=== PATIENT | male | born 1970 | race Two or more races ===

== ENCOUNTER 2020-05-03 07:21 | Day surgery (SDC) | payer OTHER, SELFPAY ==
[2020-04-27 12:16] VITALS: BMI 34.7
--- NOTE | 2020-05-02 08:33 | HO.ANESPROP2 ---
Documented by User: Naty Schroeder 05/02/20 08:34 HPI - Anesthesia Eval Consult details Narrative: 49yo M for Colonoscopy [facility] Past Medical History Medical History (Updated 05/03/20 @ 08:29 by Alissa Mandujano) Gout Snoring Surgical History Surgical History Hx of cholecystectomy Hx of colonoscopy Hx of umbilical hernia repair Social History Social History Are you a primary critical care transport nurse to a significant other at home: No Do you presently have visiting nurse or other home services: No Smoking Status: Never smoker Use of substances other than those prescribed or required for medical reasons: No Advance Directives: No Advance Directives Information Provided: No Advance Directives on File: No Recently lost weight without trying: No Meds Allergies Allergy/AdvReac Type Severity Reaction Status Date / Time No Known Allergies Allergy Unverified 04/27/20 12:15 Home Medications Medication Instructions Recorded Confirmed Type No Known Home Meds 04/27/20 04/27/20 History Exam Exam Date and Time: May 02, 2020 0833 Height,Weight and Vital Signs: Height 5 ft 6 in Weight 97.522 kg Assessment and Plan Assessment Anesthesia Assessment: Chart Reviewed Documented by User: Alissa Mandujano 05/03/20 08:31 [facility] Past Medical History Medical History (Updated 05/03/20 @ 08:29 by Alissa Mandujano) Gout Snoring Surgical History Surgical History Hx of cholecystectomy Hx of colonoscopy Hx of umbilical hernia repair History of Problems with Anesthesia: No Social History Social History Are you a primary critical care transport nurse to a significant other at home: No Do you presently have visiting nurse or other home services: No Smoking Status: Never smoker Use of substances other than those prescribed or required for medical reasons: No Advance Directives: No Advance Directives Information Provided: No Advance Directives on File: No Recently lost weight without trying: No Meds Allergies Allergy/AdvReac Type Severity Reaction Status Date / Time No Known Allergies Allergy Unverified 04/27/20 12:15 Home Medications Medication Instructions Recorded Confirmed Type No Known Home Meds 04/27/20 04/27/20 History Exam Height,Weight and Vital Signs: Vital Signs Temp Pulse Resp BP Pulse Ox 05/03/20 07:48 97.7 F 74 16 150/86 H 95 Airway Mallampati Class: III TM Dist: >3cm Neck ROM: Full Loose/Missing/Broken Teeth: Yes (Chipped 2 front, side) Heart: RRR Lungs: CTAB Assessment and Plan Assessment Anesthesia Assessment: Anesthesia Plan Discussed and Chart Reviewed Final Anesthetic Review NPO: Yes ASA Class: II Final Preanesthetic Review: No Changes in Pt Med Stat, Meds/Allgs Chart Reviewed, Consent Obtained/Reviewed and Anes Risks/Benef Reviewed Patient Risk: Low Procedure Risk: Low Assessment/Block/Sedation in SS: Assess/Block/Sedation-SS Anesthetic Plan Anesthetic Plan: MAC: Disposition: Standard PACU
[2020-05-03 07:48] VITALS: BP 150/86; PULSE 74; RESP 16; TEMP 36.5; O2SAT 95
[2020-05-03] MEDS: Lactated Ringers 1,000 ML 100 ML IVCONT (08:04)
--- NOTE | 2020-05-03 08:09 | MHC.SHP ---
Pre-Procedural Eval Section A The patient is an INPATIENT: No Changes since office visit: No Cold of Flu in the past 2 weeks, No New Medical Problems, No Changes in Medication and No Patient answered all questions The History & Physical has been completed within 30 days and I have reviewed it.: Yes Section B Chief Complaint: screening Allergies: Allergies Allergy/AdvReac Type Severity Reaction Status Date / Time No Known Allergies Allergy Unverified 04/27/20 12:15 Plan Patient has been examined and remains a candidate for the planned procedure
[2020-05-03 09:19] VITALS: BP 118/67; PULSE 93; RESP 18; TEMP 36.4; O2SAT 96
--- NOTE | 2020-05-03 09:27 | PM.OP ---
Brief Operative Note Date of Service: 05/03/20 Pre-op diagnosis: screening Post-op diagnosis: same (colon polyps) Procedure: colonoscopy Surgeon: Delgado Rojas Estimated blood loss (mL): 0 Pathology: other (polyps icv,45, 30, rectum x2) Condition: stable Disposition: other
[2020-05-03 09:35] VITALS: BP 135/91; PULSE 76; RESP 18; TEMP 36.4; O2SAT 96
--- NOTE | 2020-05-03 09:56 | HO.POSTANES ---
Post Anesthesia Evaluation Post Anesthesia Evaluation Vital Signs: Vital Signs Temp Pulse Resp BP Pulse Ox 05/03/20 09:35 97.6 F 76 18 135/91 H 96 05/03/20 09:19 97.6 F 93 18 118/67 96 05/03/20 07:48 97.7 F 74 16 150/86 H 95 Anesthesia: Monitored Mental Status: Awake Pain Control: Satisfactory Nausea/Vomiting: None Hydration: Adequate Anesthesia-Related Issues: No Anes. Related Issues
--- NOTE | 2020-05-04 15:47 | OP_ITS ---
SURGEON: Delgado Rojas MD INDICATIONS: Colon cancer screening. PREOPERATIVE DIAGNOSIS: POSTOPERATIVE DIAGNOSIS: PROCEDURE PERFORMED: ESTIMATED BLOOD LOSS: COMPLICATIONS: ANESTHESIA: ASSISTANTS: SPECIMENS: PROCEDURE: Colonoscopy to the terminal ileum with snare polypectomy. MEDICATIONS: Monitored anesthesia care. DESCRIPTION OF PROCEDURE: History and physical performed. The risks and benefits of the procedure were explained to the patient. Informed consent was obtained. The patient was placed in the left lateral decubitus position. A digital rectal exam was performed and was found to be normal. The Olympus pediatric video colonoscope was introduced into the rectum and advanced to the cecum without difficulty. The cecum was identified by transillumination, palpation, and identification of ileocecal valve. Examination was performed and the scope was removed. He tolerated the procedure well and was taken to recovery room in stable condition. FINDINGS: The terminal ileum was normal. The visualized colonic mucosa was normal. Multiple colonic polyps were identified and removed with a snare. At 45 cm was a pedunculated 10 mm polyp, which was suctioned and removed from the patient. Other polyps measured less than 10 mm and were located on the ileocecal valve at 30 cm and in the rectum x2. No other polyps were identified. The quality of prep was good. Retroflexed examination was normal. IMPRESSION: Colon polyps. RECOMMENDATIONS: Follow up the biopsy results. MD CRISTINA Muñoz/KRISTIAN / [id number]
== END 2020-05-03 10:10 | disposition home or self-care (01) ==
PROVIDERS: PCP Family Medicine; Visit Provider Internal Medicine Gastroenterology
PROC: 0DJD8ZZ Inspection of Lower Intestinal Tract, Via Natural or Artificial Opening Endoscopic (ICD-10-PCS; CPT 45378; principal; 2020-05-03 08:50)
DX: Z12.11 Encounter for screening for malignant neoplasm of colon (principal); D12.0 Benign neoplasm of cecum; D12.6 Benign neoplasm of colon, unspecified; D12.8 Benign neoplasm of rectum
CPT/HCPCS: 45385; 45380; 88305

== ENCOUNTER 2020-12-02 15:49 | Outpatient (REF) | payer OTHER, SELFPAY ==
--- NOTE | ~2020-12-02 | US_ITS ---
EXAMINATION: US VENOUS ULTRASOUND WITH DOPPLER LOWER EXTREMITY, LEFT CLINICAL INFORMATION: Pain COMPARISON: None TECHNIQUE: Ultrasound of the deep veins is performed from the hip to the calf with compression sonography and color and pulse Doppler assessment. Spectral analysis with color-flow imaging is performed. FINDINGS: There is normal venous compression and respiratory variation and augmented flow. The visualized common femoral vein, superficial femoral vein, profunda femoral vein, popliteal vein, and the trifurcation region shows no evidence of deep venous thrombosis. There is no significant popliteal fossa cyst. US/US venous duplex LE LT IMPRESSION: No DVT demonstrated in the left lower extremity.
== END 2020-12-02 15:50 | disposition home or self-care (01) ==
LOC: HO.HMGCX 15:49
PROVIDERS: PCP Internal Medicine Medical Oncology; Visit Provider Internal Medicine Medical Oncology
DX: I82.402 Acute embolism and thrombosis of unspecified deep veins of left lower extremity (principal)
CPT/HCPCS: 93971

== ENCOUNTER 2022-01-10 15:07 | Outpatient (REF) | payer OTHER, SELFPAY ==
[2022-01-10 18:34] LABS: CT PCR NOT DETECTED (Not Detect.); NG PCR NOT DETECTED (Not Detect.)
== END 2022-01-10 15:08 | disposition home or self-care (01) ==
LOC: HO.LNP 15:07
PROVIDERS: Visit Provider Internal Medicine Medical Oncology
DX: A54.9 Gonococcal infection, unspecified (principal); A74.9 Chlamydial infection, unspecified
CPT/HCPCS: 87491; 87591

== ENCOUNTER 2022-01-10 15:27 | Outpatient (REF) | payer OTHER, SELFPAY ==
[2022-01-10 15:44] LABS: MANUAL DIFF FLAG NO
[2022-01-10 16:46] LABS: Basophils Absolute Auto 0.1 X10*3/uL (0.0-0.2); Basophils Percent Auto 0.7 % (0-2); Eosinophils Absolute Auto 0.1 X10*3/uL (0.0-0.4); Eosinophils Percent Auto 0.7 % (0-4); Hemoglobin 16.4 g/dl (14.0-18.0); Imm Gran Abs Auto 0.02 X10*3/uL (0.00-0.03); Imm Gran Pct Auto 0.2 % (0.0-0.4); Lymphocytes Absolute Auto 3.3 X10*3/uL (1.2-4.9); Lymphocytes Percent Auto 37.9 % (20-40); Mean Corpuscular HGB Conc 34.9 g/dl (31.0-36.0); Mean Corpuscular Hemoglobin 31.2 pg (27.0-33.0); Mean Corpuscular Volume 89.5 fL (80.0-98.0); Mean Platelet Volume 11.6 fL (9.4-12.4); Monocytes Absolute Auto 0.8 X10*3/uL (0.1-1.2); Monocytes Percent Auto 9.2 % (2-11); Neutrophils Absolute Auto 4.5 x10*3/uL (2.0-8.3); Neutrophils Percent Auto 51.3 % (45-73); Platelet Count 227 X10*3/uL (160-400); Red Blood Count 5.25 X10*6/uL (4.60-5.80); Red Cell Distribution Width 12.3 % (11.0-16.0); White Blood Count 8.8 X10*3/uL (4.8-10.8)
[2022-01-10 17:12] LABS: Alanine Aminotransferase 93 U/L (0-40); Albumin Level 4.6 g/dL (3.5-5.0); Alkaline Phosphatase 80 U/L (39-117); Anion Gap 17 (12-20); Aspartate Amino Transferase 97 U/L (5-37); Bilirubin Total 0.9 mg/dL (0.0-1.0); Blood Urea Nitrogen 10 mg/dL (9-16); Calcium 9.8 mg/dL (8.4-10.2); Carbon Dioxide 27 mmol/L (22-29); Chloride 101 mmol/L (96-108); Cholesterol 229 mg/dL; Estimated Glomerular Filt Rate > 60; Glucose Random 80 mg/dL (60-115); HDL Cholesterol 47 mg/dL; LDL Cholesterol Calculated 148 mg/dl; Potassium 4.3 mmol/L (3.3-5.1); Sodium 141 mmol/L (135-145); Total Protein 8.1 g/dL (6.5-8.0); Triglycerides 172 mg/dL
[2022-01-11 08:32] LABS: HIV AB/AG Nonreactive (Nonreactive); HIV Num 1 0.05 S/CO (0.00-0.99)
[2022-01-12 06:29] LABS: Syphilis Screen Nonreactive (Nonreactive)
== END 2022-01-10 15:28 | disposition home or self-care (01) ==
LOC: HO.LAB 15:27
PROVIDERS: PCP Internal Medicine Medical Oncology; Visit Provider Internal Medicine Medical Oncology
DX: Z11.4 Encounter for screening for human immunodeficiency virus [HIV] (principal); Z12.5 Encounter for screening for malignant neoplasm of prostate; A54.9 Gonococcal infection, unspecified; A74.9 Chlamydial infection, unspecified; K75.9 Inflammatory liver disease, unspecified; N52.9 Male erectile dysfunction, unspecified
CPT/HCPCS: 36415; 80053; 80061; 84153; 85025; 86780; 87389

== ENCOUNTER 2022-05-03 09:36 | Outpatient (REF) | payer OTHER, SELFPAY ==
--- NOTE | ~2022-05-03 | XR_ITS ---
EXAMINATION: XR ANKLE, LEFT CLINICAL INFORMATION: Left ankle pain. COMPARISON: None TECHNIQUE: AP, lateral, and mortise views of the left ankle. FINDINGS: There is no evidence of acute fracture or dislocation of the left ankle. Left ankle mortise intact. There is mild spurring at the tibial talar joint. No destructive bony lesions. Joint spaces maintained. XR/XR ankle LT min 3V IMPRESSION: No acute bony abnormality of the left ankle identified.
== END 2022-05-03 09:37 | disposition home or self-care (01) ==
LOC: HO.XRAY 09:36
PROVIDERS: PCP Internal Medicine Medical Oncology; Visit Provider Internal Medicine Medical Oncology
DX: M25.572 Pain in left ankle and joints of left foot (principal)
CPT/HCPCS: 73610

== ENCOUNTER 2022-07-02 16:58 | Outpatient (REF) | payer OTHER, SELFPAY | END 2022-07-02 16:59 | disposition home or self-care (01) | LOC: HO.LNP 16:58 | PROVIDERS: PCP Internal Medicine Medical Oncology; Visit Provider Internal Medicine Medical Oncology | DX: J02.9 Acute pharyngitis, unspecified (principal) | CPT/HCPCS: 87070 ==

== ENCOUNTER → 2022-08-16 13:10 | Outpatient (BNVA) | payer OTHER, SELFPAY | PROVIDERS: PCP Internal Medicine Medical Oncology; Visit Provider Physician Assistant | DX: M76.72 Peroneal tendinitis, left leg (principal); M19.072 Primary osteoarthritis, left ankle and foot | CPT/HCPCS: 99202 ==

== ENCOUNTER 2022-10-02 13:42 | Outpatient (RCR) | payer OTHER, SELFPAY ==
--- NOTE | 2022-10-02 15:29 | MHC.PT.EP ---
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 PRESENTS WITH GOOD OVERALL ROM (EXCEPT EVERSION) AND STRENGTH WITHOUT SIGNIF PAIN/SWELLING AT TIME OF EVAL. Pt REPORTS MOST DISCOMFORT WHEN STANDS AFTER PROLONGED SIT OR AFTER SLEEP. SHOULD BENEFIT FROM SHORT BOUT OF PT TO ADDRESS THESE ISSUES ALONG WITH PROPRIOCEPTION WORK Frequency and Duration: The patient will be seen 1X/WK X 3 WKS Short Term Goals: 1. INCREASED AWARENESS ANKLE CARE 2. CONTINUED LIMITED SWELLING Halfway Goals: 1. INCREASED EVERSION ROM 5 DEGREES 2. IMPROVED LEFI (58/80 SOC) 3. I HEP WITH DC EX PLAN 4. DECREASED L ANKLE PAIN AT LEAST 50% WITH ADLS Treatment Plan: Modalities to reduce pain, spasms and effusion. Manual therapy to restore motion and function. Therapeutic exercise to improve strength and flexibility. Neuromuscular re-education for posture and balance. Therapeutic activities to return to functional activities of daily living. Electronically signed by: ALAYNA JANSEN PT Please sign and return to therapist. Thank you for your referral.
--- NOTE | 2022-10-23 15:41 | MHC.PT.DC ---
[facility] [place] Office [place] Office [place] Office [address] Xavier Cope [address] [phone] F: [phone] F: [phone] F: [phone] F: [phone] Physical Therapy Discharge Report Diagnosis: OA L ANKLE Date of Surgery: NA Date of Evaluation: 10/02/22 Date of Discharge: 10/23/22 Treatments to Date: 1 Cancellations to Date: No Shows to Date: 3 Discharge Status: Visit Non-compliance Discharge Summary: Pt SEEN FOR INIT EVAL ONLY. Pt NO SHOWED FOR 3 APPTS. 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 PRESENTS WITH GOOD OVERALL ROM (EXCEPT EVERSION) AND STRENGTH WITHOUT SIGNIF PAIN/SWELLING AT TIME OF EVAL. Pt REPORTS MOST DISCOMFORT WHEN STANDS AFTER PROLONGED SIT OR AFTER SLEEP. SHOULD BENEFIT FROM SHORT BOUT OF PT TO ADDRESS THESE ISSUES ALONG WITH PROPRIOCEPTION WORK Electronically signed by: ALAYNA JANSEN PT Please sign and return to therapist. Thank you for your referral.
== END 2022-10-23 15:41 | disposition home or self-care (01) ==
LOC: HO.PT 13:42
PROVIDERS: PCP Physician Assistant Medical; Visit Provider Physician Assistant
DX: M76.72 Peroneal tendinitis, left leg (principal); M19.072 Primary osteoarthritis, left ankle and foot
CPT/HCPCS: 97110; 97161

== ENCOUNTER 2023-07-23 07:36 | Day surgery (SDC) | payer OTHER, SELFPAY ==
[2023-07-19 13:27] VITALS: BMI 34.4
--- NOTE | 2023-07-19 15:46 | P.CONAN_ITS ---
Documented by User: Naty Schroeder NP 07/19/23 15:46 HPI - Anesthesia Eval Consult details Narrative: 52yo M for Colonoscopy PMFSH Active Problems Active Problems: All Active Problems (Updated 07/19/23 @ 13:35 by Marleny Garcia, SREEDHAR) Osteoarthritis of left ankle (Acute) Peroneal tendonitis of left lower extremity (Acute) Snoring (Acute) Past Medical History Medical History GABRIEL (obstructive sleep apnea) Multiple adenomatous polyps History of colon polyps Rosacea Hyperlipidemia Gout Surgical History Surgical History Hx of umbilical hernia repair (~2019) Hx of colonoscopy Hx of cholecystectomy History of Problems with Anesthesia: No Social History Social History Are you a primary intensive care nurse to a significant other at home: No Do you presently have visiting nurse or other home services: No Patient Tobacco Use Status: Never used Tobacco Current occupational status: unemployed Meds Allergies Allergy/AdvReac Type Severity Reaction Status Date / Time No Known Allergies Allergy Verified 07/19/23 13:37 Home Medications Medication Instructions Recorded Confirmed Last Taken Type allopurinol 100 mg tablet 100 mg PO DAILY PRN gout 07/22/23 07/23/23 05/25/22 History Exam Height,Weight and Vital Signs: Height 5 ft 6 in Weight 96.615 kg Assessment and Plan Assessment Anesthesia Assessment: Chart Reviewed Final Anesthetic Review History of Problems with Anesthesia: No Documented by User: Alissa Mandujano MD 07/23/23 08:52 PMFSH Active Problems Active Problems: All Active Problems (Updated 07/23/23 @ 08:35 by René Mandujano MD) Osteoarthritis of left ankle (Acute) Peroneal tendonitis of left lower extremity (Acute) Snoring (Acute) GABRIEL. Not using CPAP Past Medical History Medical History GABRIEL (obstructive sleep apnea) Multiple adenomatous polyps History of colon polyps Rosacea Hyperlipidemia Gout Family History Family history of problems with anesthesia: No Surgical History Surgical History Hx of umbilical hernia repair (~2019) Hx of colonoscopy Hx of cholecystectomy History of Problems with Anesthesia: No Social History Social History Are you a primary intensive care nurse to a significant other at home: No Do you presently have visiting nurse or other home services: No Patient Tobacco Use Status: Never used Tobacco Current occupational status: unemployed Meds Allergies Allergy/AdvReac Type Severity Reaction Status Date / Time No Known Allergies Allergy Verified 07/19/23 13:37 Home Medications Medication Instructions Recorded Confirmed Last Taken Type allopurinol 100 mg tablet 100 mg PO DAILY PRN gout 07/22/23 07/23/23 05/25/22 History Exam Height,Weight and Vital Signs: Height 5 ft 6 in Weight 96.615 kg Vital Signs Temp Pulse Resp BP Pulse Ox O2 Del Method 07/23/23 07:58 98.3 F 96 19 162/90 H 97 Room Air Airway Mallampati Class: II TM Dist: >3cm Neck ROM: Full Loose/Missing/Broken Teeth: Yes (Missing teeth back) Heart: RRR Lungs: CTAB Assessment and Plan Assessment Anesthesia Assessment: Anesthesia Plan Discussed and Chart Reviewed Final Anesthetic Review Family History of Problems with Anesthesia: No History of Problems with Anesthesia: No NPO: Yes ASA Class: III Final Preanesthetic Review: No Changes in Pt Med Stat, Meds/Allgs Chart Reviewed, Consent Obtained/Reviewed and Anes Risks/Benef Reviewed Patient Risk: Intermediate Procedure Risk: Low Assessment/Block/Sedation in SS: Assess/Block/Sedation-SS Anesthetic Plan Anesthetic Plan: MAC: and TIVA Disposition: Standard PACU
[2023-07-23 07:58] VITALS: BP 162/90; PULSE 96; RESP 19; TEMP 36.8; O2SAT 97; BMI 34.3
[2023-07-23] MEDS: Lactated Ringers 1,000 ML 100 ML IVCONT (08:35)
--- NOTE | 2023-07-23 08:50 | P.HPSUR_ITS ---
Pre-Procedural Eval Section A - 24 Hr Update-Section A only Date of Service: 07/23/23 Section B - Complete if H&P > 30 days Chief Complaint: Encounter for screening for malignant neoplasm of Details of Present Illness: see H&P no changes Relevant Family History (Specify if Yes): No Relevant Social History: None Present Medications: see Short Stay Collaborative assessment Medical History: No relevant PMH History of Previous Operations: No relevant previous surgery Allergies: Allergies Allergy/AdvReac Type Severity Reaction Status Date / Time No Known Allergies Allergy Verified 07/19/23 13:37 Review of Systems Sugical H&P ROS: Negative: Constitution, Cardiovascular, Respiratory, Neurological, Psychiatric, Hem-Onc, Allergic/Immunologic, Gastrointestinal, Genitourinary, Musculoskeletal, Integumentary, Endocrine and Eyes/Ears/No se/Throat Exam Surgical H&P Exam: Normal: HEENT, Normal: Heart, Normal: Lungs, Normal: Extremities, Normal: Abdomen, Normal: Skin and Normal: Neurological Plan Diagnosis/Plan: Unchanged I have reviewed the history and physical and performed a pertinent physical examination on my patient. No changes have occurred unless specified. Time Spent With Patient Time: Total time managing care of this patient today ____ minutes.
[2023-07-23 09:34] VITALS: BP 99/60; PULSE 76; RESP 15; TEMP 36.6; O2SAT 96
[2023-07-23 09:48] VITALS: BP 114/80; PULSE 55; RESP 18; TEMP 36.3; O2SAT 96
--- NOTE | 2023-07-23 09:48 | OP_ITS ---
DATE OF SERVICE: 07/23/2023 SURGEON: Delgado Rojas MD INDICATIONS: Colon cancer screening and prior history of adenomatous colon polyps. PREOPERATIVE DIAGNOSIS: POSTOPERATIVE DIAGNOSIS: PROCEDURE PERFORMED: Colonoscopy to the terminal ileum with snare polypectomy. ESTIMATED BLOOD LOSS: COMPLICATIONS: ANESTHESIA: Monitored anesthesia care. ASSISTANTS: SPECIMENS: DESCRIPTION OF PROCEDURE: A history and physical were performed. The risks and benefits of the procedure were explained to the patient, and informed consent was obtained. The patient was placed in the left lateral decubitus position. A digital rectal exam was performed and was found to be normal. The Olympus pediatric video colonoscope was introduced into the rectum and advanced to the cecum. The cecum was identified by transillumination, palpation, and identification of the ileocecal valve. Examination was performed and the scope was removed. He tolerated the procedure well. He was returned to the recovery area in stable condition. FINDINGS: The terminal ileum was examined and appeared normal. The visualized colonic mucosa was normal. At 70 cm were 3 polyps measuring less than 10 mm, which were removed with a snare and recovered via suction. At 55 cm was a 10 mm polyp that was pedunculated; this was removed with a snare and removed from the patient. The scope was reinserted. No other polyps were identified. Retroflexed examination showed some small internal hemorrhoids. The quality of prep was good. IMPRESSION: Colon polyps. RECOMMENDATION: Follow up biopsy results. MD CRISTINA Muñoz/KRISTIAN / [id number]
== END 2023-07-23 11:20 | disposition home or self-care (01) ==
PROVIDERS: PCP Internal Medicine Medical Oncology; Visit Provider Internal Medicine Gastroenterology
PROC: 0DJD8ZZ Inspection of Lower Intestinal Tract, Via Natural or Artificial Opening Endoscopic (ICD-10-PCS; CPT 45378; principal; 2023-07-23 09:10)
DX: Z12.11 Encounter for screening for malignant neoplasm of colon (principal); D12.4 Benign neoplasm of descending colon; D12.5 Benign neoplasm of sigmoid colon; Z86.010 Personal history of colon polyps; E78.5 Hyperlipidemia, unspecified; G47.33 Obstructive sleep apnea (adult) (pediatric)
CPT/HCPCS: 45385; 88305; J2704

== ENCOUNTER 2023-07-25 17:42 | Emergency (ER) | payer OTHER, SELFPAY ==
[2023-07-25 17:46] VITALS: BP 145/88; PULSE 70; RESP 18; TEMP 37.2; O2SAT 99; BMI 32.8
--- NOTE | 2023-07-25 17:46 | ED.GENADULT ---
HPI - General Adult General Chief complaint: GI Bleed Stated complaint: colonoscopy 07/22, bleeding still Related Data Home Medications Medication Instructions Recorded Confirmed allopurinol 100 mg tablet 100 mg PO DAILY PRN gout 07/22/23 07/23/23 Allergies Allergy/AdvReac Type Severity Reaction Status Date / Time No Known Allergies Allergy Verified 07/19/23 13:37 PMFSH Past Medical History Medical History GABRIEL (obstructive sleep apnea) Multiple adenomatous polyps History of colon polyps Rosacea Hyperlipidemia Gout Surgical History Hx of umbilical hernia repair (~2019) Hx of colonoscopy Hx of cholecystectomy Social History Social History Are you a primary patient centered care specialist to a significant other at home: No Do you presently have visiting nurse or other home services: No Patient Tobacco Use Status: Never used Tobacco Advance Directives: No Advance Directives Information Provided: No Current occupational status: unemployed Physical Exam ED Vital Signs: BMI result Body Mass Index 32.8 Course Course Course Narrative: This is a rapid medical exam: Additional HPI, ROS, PE not included below will be deferred to primary provider. Patient is a 52-year-old male, colonoscopy on 07/22, presenting to the ED with complaint of dark red rectal bleeding with clots with bowel movements. Yesterday felt dizzy/lightheaded and was seeing stars. He contacted Dr. Rojas's office and was referred here. Plan: labs Discharge Plan Discharge Clinical Impression: Diagnosis unknown Patient Disposition: Left W/O Completing Treatment Prescriptions: No Action allopurinol 100 mg tablet 100 mg PO DAILY MDD daily PRN (Reason: gout) Discharge Date/Time: 07/25/23 22:28
== END 2023-07-25 22:28 | disposition left against medical advice (07) ==
LOC: HO.ED 22:22
PROVIDERS: Emergency Provider Emergency Medicine; PCP Internal Medicine Medical Oncology
DX: K92.2 Gastrointestinal hemorrhage, unspecified (principal)
CPT/HCPCS: 99281